=== PATIENT | male | born 1975 | race Caucasian/White ===

== ENCOUNTER 2020-06-25 13:04 | Outpatient (CLI) | payer OTHER ==
[2020-06-25] MEDS ORDERED: BUFFERED LIDOCAINE 10 ML SYRINGE ONE (13:18)
[2020-06-25] MEDS ORDERED: GADOBUTROL 7.5 MMOL/7.5 ML VIAL ONE (13:18)
[2020-06-25] MEDS ORDERED: GADOBUTROL 7.5 MMOL/7.5 ML VIAL IVP ONE (15:24)
[2020-06-25] MEDS ORDERED: BUFFERED LIDOCAINE 10 ML SYRINGE IU ONE (15:30)
[2020-06-25] MEDS ORDERED: iohexoL-240 10 ML VIAL IVP ONE (15:30)
--- NOTE | 2020-06-25 15:52 | XRAY Report ---
PROCEDURE: Arthrogram Needle Placement INDICATIONS: PAIN IN LEFT SHOULDER CONTRAST: CONTRAST: Omipaque 240 FLUOROSCOPY TIME: FLUORO TIME: 18 sfec and NUMBER IMAGES: 3 TECHNIQUE: The indications, alternatives, benefits, risks, and complications of the procedure were explained to the patient. Written informed consent was obtained and placed in the chart. The shoulder was examin ed fluoroscopically and a site for needle placement chosen for entry into the glenohumeral joint from an anterior approach. The skin was prepped and draped in the usual fashion, and 1% lidocaine infilt rated from skin down to joint capsule. A spinal needle was inserted into the glenohumeral joint, and a small amount of iodinated contrast media injected to confirm intra-articular placement of the need le tip. This was followed by approximately 12 mL dilute solution of a gadolinium containing MR contr ast agent. The needle was removed and a dressing was applied. The patient was given postprocedural instructions and sent to the MR suite for MR imaging. FINDINGS: A single fluoroscopic spot image demonstrates intra-articular location of injected iodinated contrast . IMPRESSION: Successful fluoroscopically guided administration of dilute Gadolinium solution into the shoulder lolis atwood for MR arthrogram. Reviewed by: Katerine Astudillo MD on 06/25/2020 3:51 PM PST Approved by: Katerine Astudillo MD on 06/25/2020 3:51 PM PST Station ID: [id number]
--- NOTE | 2020-06-25 17:55 | MRI Report ---
PROCEDURE: Arthrogram Shoulder LT INDICATIONS: PAIN IN LEFT SHOULDER CONTRAST: TECHNIQUE: After the administration of 12 mL of dilute intra-articular Gadolinium contrast, oblique coronal T1 a nd T2 spin echo with fat saturation, oblique sagittal T1 spin echo with and without fat saturation, o blique sagittal T2 fast spin echo with fat saturation, axial T1 spin echo with fat saturation through the shoulder. COMPARISON: None. FINDINGS: Image quality: Excellent. Rotator cuff: The supraspinatus, infraspinatus, subscapularis, and teres minor appear intact. No rot ator cuff muscle atrophy on sagittal images. Bones and bursae: No bone marrow contusions or fractures. There is moderate acromioclavicular joint degeneration. The acromion demonstrates conventional anatomy, without an os acromiale. Minimal subac romial/subdeltoid bursal fluid is present. Capsule and soft tissues: There is mild degenerative tearing within the superior and posterosuperior labrum. The glenohumeral ligaments appear intact. The long head of the biceps tendon demonstrates n ormal location and morphology. No intra-articular bodies. IMPRESSION: 1. Mild degenerative tearing within the superior and posterosuperior labrum. 2. Moderate acromioclavicular joint degeneration with minimal subacromial/subdeltoid bursal fluid. Reviewed by: Richi Paulino MD on 06/25/2020 5:53 PM PST Approved by: Richi Paulino MD on 06/25/2020 5:53 PM PST Station ID: [id number]
== END 2020-06-25 13:05 | disposition home or self-care (01) ==
LOC: DI 13:04
PROVIDERS: ATTEND Student in an Organized Health Care Education/Training Program
DX: M75.82 Other shoulder lesions, left shoulder (principal); M19.012 Primary osteoarthritis, left shoulder; M25.412 Effusion, left shoulder
CPT/HCPCS: 23350; 73222; 77002; A9585; Q9966

== ENCOUNTER 2021-05-23 11:01 | Outpatient (CLI) | payer OTHER ==
--- NOTE | 2021-05-23 13:19 | XRAY Report ---
PROCEDURE: Shoulder 3 View LT INDICATIONS: LEFT SHOULDER PAIN TECHNIQUE: 3 views of the shoulder were acquired. COMPARISON: MRI shoulder 06/25/2020 FINDINGS: Bones: No fractures or dislocations. No suspicious bony lesions. Visualized ribs appear intact. M oderate acromioclavicular degenerative narrowing. Humeral head is high riding. Soft tissues: No suspicious soft tissue calcifications. IMPRESSION: Moderate acromioclavicular degenerative narrowing. High riding humeral head which can be seen with rotator cuff pathology. Reviewed by: Katerine Astudillo MD on 05/23/2021 1:18 PM PDT Approved by: Katerine Astudillo MD on 05/23/2021 1:18 PM PDT Station ID: [id number]
== END 2021-05-23 11:02 | disposition home or self-care (01) ==
LOC: DI.N 11:01
PROVIDERS: ATTEND Physician Assistant
DX: M19.012 Primary osteoarthritis, left shoulder (principal)

== ENCOUNTER 2021-09-09 13:39 | Outpatient (CLI) | payer OTHER ==
--- NOTE | 2021-09-09 12:35 | XRAY Report ---
PROCEDURE: Finger(s) LT INDICATIONS: LEFT MIDDLE FINGER PX TECHNIQUE: AP hand, 2 views of the . finger(s) acquired. COMPARISON: None FINDINGS: Bones: No fractures or dislocations. No suspicious bony lesions. Soft tissues: No suspicious soft tissue calcifications. IMPRESSION: Normal left third digit. Reviewed by: Guerline Pearson MD on 09/09/2021 12:33 PM PST Approved by: Guerline Pearson MD on 09/09/2021 12:33 PM PST Station ID: [id number]
--- NOTE | 2021-09-09 13:07 | XRAY Report ---
PROCEDURE: Shoulder 3 View RT INDICATIONS: RIGHT SHOULDER PAIN TECHNIQUE: 4 views of the shoulder were acquired. COMPARISON: Contralateral left shoulder radiographs 05/23/2021. FINDINGS: Bones: No fractures or dislocations. Mild to moderate degenerative change at the AC joint. No suspic ious bony lesions. Visualized ribs appear intact. Soft tissues: No suspicious soft tissue calcifications. 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 Reviewed by: Patrick Barahona MD on 09/09/2021 1:06 PM [facility] Approved by: Patrick Barahona MD on 09/09/2021 1:06 PM [facility] Station ID: [id number]
== END 2021-09-09 13:40 | disposition home or self-care (01) ==
LOC: DI.WOS 13:39
PROVIDERS: ATTEND Physician Assistant
DX: M79.645 Pain in left finger(s) (principal); M19.012 Primary osteoarthritis, left shoulder